=== PATIENT | male | born 1955 | race American Indian/Alaskan Native ===

== ENCOUNTER 2019-08-14 09:52 | Emergency (ER) | payer SELFPAY ==
[2019-08-14] MEDS ORDERED: ASPIRIN 325 MG TAB PO ONE (09:55)
--- NOTE | 2019-08-14 10:38 | XRay Report ---
CHEST 1 VIEW 10:12 AM INDICATION / CLINICAL INFORMATION: Left chest pain radiating to the left arm for 2 weeks, recently increasing in severity. COMPARISON: None available. FINDINGS: SUPPORT DEVICES: None. HEART / MEDIASTINUM: The heart size and pulmonary vasculature are normal. The aorta is normal in zhane chao. LUNGS / PLEURA: No significant pulmonary or pleural abnormality. No pneumothorax. ADDITIONAL FINDINGS: No significant additional findings. IMPRESSION: No acute findings. Signer Name: Dagoberto Chacon MD Signed: 08/14/2019 10:33 AM Workstation Name: [id number]
[2019-08-14 10:44] LABS: Basophils % (Auto) 0.6 % (0.0-1.8); Eosinophils # (Auto) 0.2 K/mm3 (0.0-0.4); Eosinophils % (Auto) 3.6 % (0.0-4.3); Hematocrit 49.4 % (35.5-45.6); Hemoglobin 16.5 gm/dl (11.8-15.2); Lymphocytes # (Auto) 2.4 K/mm3 (1.2-5.4); Lymphocytes % (Auto) 43.5 % (13.4-35.0); Mean Corpuscular HGB Conc 34 % (32-34); Mean Corpuscular Volume 91 fl (84-94); Monocytes # (Auto) 0.5 K/mm3 (0.0-0.8); Monocytes % (Auto) 9.1 % (0.0-7.3); Platelet Count 156 K/mm3 (140-440); Red Cell Distribution Width 13.2 % (13.2-15.2)
[2019-08-14 11:06] LABS: BUN/Creatinine Ratio 7; Blood Urea Nitrogen 9 mg/dL (9-20); Calcium 9.4 mg/dL (8.4-10.2); Hemolysis Index 8
--- NOTE | 2019-08-14 12:46 | Emergency Department Report ---
ED Chest Pain HPI - General Chief Complaint: Chest Pain Stated Complaint: CHEST PAIN Time Seen by Provider: 08/14/19 12:23 Source: patient Mode of arrival: Ambulatory Limitations: No Limitations - History of Present Illness Initial Comments: This is a very pleasant 64-year-old man that has not traveled for more than 6 months. He complains of left. He axillary pain intermittently for 2 weeks. He states that it was also heard on his right side in the same area. Usually he states the pain only lasts for a few seconds or minutes. This time it lasted a bit longer. He had no associated symptoms whatsoever. He states the pain usually occurs "at night". He is really not symptomatic at this time. He has not consulted with his primary care provider yet. MD Complaint: chest pain -: Gradual Onset: during rest Pain Location: other Pain Radiation: none Severity: mild, moderate Quality: dull Consistency: intermittent, now resolved Improves With: nothing Worsens With: nothing re: denies: nausea, vomting, diaphoresis, dyspnea, sense of impending doom Other Symptoms: denies: cough, fever, syncope Treatments Prior to Arrival: none - Related Data Allergies Allergy/AdvReac Type Severity Reaction Status Date / Time No Known Allergies Allergy Unverified 08/14/19 09:55 Heart Score - HEART Score History: Slightly suspicious EKG: Normal Age: > 65 Risk factors: 1-2 risk factors Troponin: < normal limit HEART Score: 3 - Critical Actions Critical Actions: 0-3 pts:0.9-1.7%risk of adverse cardiac event.Candidate for discharge ED Review of Systems ROS: Stated complaint: CHEST PAIN Other details as noted in HPI Constitutional: denies: chills, fever Eyes: denies: eye pain, eye discharge, vision change ENT: denies: ear pain, throat pain Respiratory: denies: cough, shortness of breath, wheezing Cardiovascular: chest pain. denies: palpitations Endocrine: no symptoms reported Gastrointestinal: denies: abdominal pain, nausea, diarrhea Genitourinary: denies: urgency, dysuria Musculoskeletal: denies: back pain, joint swelling, arthralgia Skin: denies: rash, lesions Neurological: denies: headache, weakness, paresthesias Psychiatric: denies: anxiety, depression Hematological/Lymphatic: denies: easy bleeding, easy bruising ED Past Medical Hx - Past Medical History Previous Medical History?: Yes Hx Hypertension: Yes Additional medical history: high cholesterol - Surgical History Past Surgical History?: Yes - Social History Smoking Status: Never Smoker Substance Use Type: Alcohol ED Physical Exam - General Limitations: No Limitations General appearance: alert, in no apparent distress - Head Head exam: Present: atraumatic, normocephalic - Eye Eye exam: Present: normal appearance. Absent: scleral icterus - ENT ENT exam: Present: mucous membranes moist - Neck Neck exam: Present: normal inspection. Absent: tenderness, meningismus - Respiratory Respiratory exam: Present: normal lung sounds bilaterally. Absent: respiratory distress - Cardiovascular Cardiovascular Exam: Present: regular rate, normal rhythm. Absent: systolic murmur, diastolic murmur, rubs, gallop - GI/Abdominal GI/Abdominal exam: Present: soft, normal bowel sounds. Absent: distended, tenderness, guarding, rebound - Rectal Rectal exam: Present: deferred - Extremities Exam Extremities exam: Present: normal inspection, full ROM, normal capillary refill. Absent: tenderness, pedal edema, joint swelling, calf tenderness - Back Exam Back exam: Present: normal inspection - Neurological Exam Neurological exam: Present: alert, oriented X3, CN II-XII intact. Absent: motor sensory deficit - Psychiatric Psychiatric exam: Present: normal affect, normal mood - Skin Skin exam: Present: warm, dry, intact, normal color. Absent: rash ED Course Vital Signs 08/14/19 08/14/19 09:56 12:37 Temperature 98.3 F 98.3 F Pulse Rate 55 L 52 L Respiratory 18 17 Rate Blood Pressure 154/92 Blood Pressure 143/84 [Left] O2 Sat by Pulse 98 100 Oximetry - Reevaluation(s) Reevaluation #1: Patient without pain complaints here. He is appropriate for outpatient disposition and further workup with his primary care physician Dr. Silvestre. 08/14/19 12:55 SERENITY score - Serenity Score Age > 65: (1) Yes Aspirin use within the Past 7 Days: (0) No 3 or more CAD Risk Factors: (0) No 2 or more Angina events in past 24 hrs: (0) No Known CAD with more than 50% Stenosis: (0) No Elevated Cardiac Markers: (0) No ST Deviation Greater than 0.5mm: (0) No SERENITY Score: 1 ED Medical Decision Making - Lab Data Result diagrams: 08/14/19 10:14 08/14/19 10:14 Laboratory Results - last 24 hr 08/14/19 08/14/19 10:14 10:14 WBC 5.5 RBC 5.40 H Hgb 16.5 H Hct 49.4 H MCV 91 MCH 31 MCHC 34 RDW 13.2 Plt Count 156 Lymph % (Auto) 43.5 H Bailey % (Auto) 9.1 H Eos % (Auto) 3.6 Baso % (Auto) 0.6 Lymph # 2.4 Bailey # 0.5 Eos # 0.2 Baso # 0.0 Seg Neutrophils % 43.2 Seg Neutrophils # 2.4 Sodium 141 Potassium 4.1 Chloride 103.9 Carbon Dioxide 25 Anion Gap 16 BUN 9 Creatinine 1.3 Estimated GFR > 60 BUN/Creatinine Ratio 7 Glucose 94 Calcium 9.4 Troponin T < 0.010 - EKG Data -: EKG Interpreted by Me EKG shows normal: sinus rhythm, axis, intervals, QRS complexes, ST-T waves Rate: normal - EKG Data Interpretation: no acute changes - Radiology Data Radiology results: image reviewed (chest x-ray no acute process) Critical care attestation.: If time is entered above; I have spent that time in minutes in the direct care of this critically ill patient, excluding procedure time. ED Disposition Clinical Impression: Atypical chest pain Disposition: - TO HOME OR SELFCARE Is pt being admited?: No Does the pt Need Aspirin: No Condition: Stable Instructions: Chest Pain (ED) Additional Instructions: Emergency department any acute change or significant discomfort. Further evaluation with your primary care provider is recommended. I would also recommend a baby aspirin a night. I am also giving U the information regarding [facility]. Stress testing can be appropriate as an outpatient. However, return here any significant discomfort particularly if it is associated with any other new symptoms such as sweating, nausea, dizziness, shortness of breath. Referrals: PRIMARY CARE, [Primary Care Provider] - 3-5 Days TOMMY SILVESTRE MD [Staff Physician] - 24 Hours RAMONA BAUMANN MD [Staff Physician] - 2-3 Days Time of Disposition: 13:02
[2019-08-14 13:58] VITALS: BP 138/70
== END 2019-08-14 13:30 | disposition home or self-care (01) ==
LOC: ED 09:52
DX: R07.89 Other chest pain (principal); I10 Essential (primary) hypertension; E78.00 Pure hypercholesterolemia, unspecified
CPT/HCPCS: 36415; 71045; 80048; 84484; 85025; 93005; 93010